=== PATIENT | female | born 1985 | race Caucasian/White ===

== ENCOUNTER 2017-01-16 10:50 | Outpatient (CLI) | payer OTHER ==
[~2017-01-16 10:50] MED LIST: CLINDAMYCIN HC300 MG PO; CORRECTOL100 MG PO; IBUPROFEN200 M1 PO; OXYCODONE/ACETA1 TA1 PO; PREDNISONE20 MG PO; PRENATAL1 TAB PO; PROAIR HFA IN; SMZ-TMP DS1 TAB PO; WELLBUTRIN SR150 MG PO
--- NOTE | 2017-01-16 11:35 | DIAGNOSTIC IMAGING REPORT ---
PROCEDURE: US OB 1ST TRIMESTER W/TRANSVAG INDICATION: CHECK DATES TECHNIQUE: Ryder scale, color, and spectral Doppler transabdominal sonographic images of the first trimester gravid uterus were obtained. COMPARISON: OB ultrasound 03/18/2016 FINDINGS: TRANSABDOMINAL SCANS: The gravid uterus is anteverted in position and contains a fundal gestational sac with a moderate residual response. No perigestational hemorrhage. The cervix is closed. A pole with an average crown-rump length of 1 cm is present. There is detectable cardiac activity in the fetus in a rate of 129 beats per minute. A yolk sac was visible. IMPRESSION: 1. Single living intrauterine with gestational age of 7 weeks and 0 days and estimated due date of 09/04/2017 2. Closed cervix and no perigestational hemorrhage.
== END 2017-01-16 23:00 ==
LOC: US SRH 10:50
DX: Z34.91 Encounter for supervision of normal pregnancy, unspecified, first trimester (principal); Z3A.01 Less than 8 weeks gestation of pregnancy